=== PATIENT | male | born 1960 | race Caucasian/White ===

== ENCOUNTER → 2020-05-08 | Outpatient (CLI) | payer OTHER ==
[~2020-05-08] MED LIST: REGADENOSON 0.4 MG/5 ML PF SYG IVP ONE; REGADENOSON 0.4 MG/5 ML PF SYG IVP SCH
== END | disposition home or self-care (01) ==
LOC: SHCH 08:12
PROVIDERS: ATTEND Internal Medicine Cardiovascular Disease
DX: R93.1 Abnormal findings on diagnostic imaging of heart and coronary circulation (principal); R07.9 Chest pain, unspecified; R06.00 Dyspnea, unspecified
CPT/HCPCS: 78452; 93017; 96374; A9500 ×2; J2785

== ENCOUNTER → 2020-05-15 | Outpatient (CLI) | payer OTHER | END | disposition home or self-care (01) | LOC: RAH 07:51 | PROVIDERS: ATTEND Physical Medicine & Rehabilitation | DX: M47.812 Spondylosis without myelopathy or radiculopathy, cervical region (principal); M51.26 Other intervertebral disc displacement, lumbar region; M48.061 Spinal stenosis, lumbar region without neurogenic claudication | CPT/HCPCS: 72141; 72148 ==

== ENCOUNTER → 2021-10-13 | Outpatient (CLI) | payer OTHER | END | disposition home or self-care (01) | LOC: RAH 11:47 | PROVIDERS: ATTEND Physician Assistant | DX: M16.11 Unilateral primary osteoarthritis, right hip (principal); I70.8 Atherosclerosis of other arteries | CPT/HCPCS: 73502 ==

== ENCOUNTER 2021-12-02 07:58 | Day surgery (SDC) | payer OTHER ==
[2021-11-30 13:30] LABS: BASOPHILS % (AUTO) 0.6 % (0.0-5.0); EOSINOPHILS % (AUTO) 2.8 % (0.0-8.0); HEMATOCRIT 45.8 % (42-54); MEAN CORPUSCULAR HEMOGLOBIN 30.4 pg (27.0-33.0); MEAN CORPUSCULAR HGB CONC 32.1 g/dL (32.0-36.0); MEAN CORPUSCULAR VOLUME 94.8 fL (79-99); NEUTROPHILS % (AUTO) 72.2 % (40.0-77.0); PLATELET COUNT (AUTO) 221 K/uL (130-400); RED BLOOD CELL COUNT(AUTO) 4.83 MIL/uL (4.50-6.20); RED CELL DISTRIBUTION WIDTH 13.7 % (11.0-15.5)
[2021-11-30 13:41] LABS: INR 0.96 (0.85-1.15); PROTHROMBIN TIME 10.5 SEC (9.6-11.6)
[2021-11-30 13:42] LABS: PARTIAL THROMBOPLASTIN TIME 27.8 SEC (26.3-35.5)
[2021-11-30 13:57] LABS: APPEARANCE,URINE Clear (CLEAR); BILIRUBIN,URINE Negative (NEGATIVE); COLOR,URINE Yellow (YELLOW); GLUCOSE, URINE (UA) Negative (NEGATIVE); KETONES,URINE Negative (NEGATIVE); LEUKOCYTE ESTERASE ,URINE Small (NEGATIVE); NITRATE,URINE Positive (NEGATIVE); OCCULT BLOOD,URINE Trace (NEGATIVE); PROTEIN,URINE Negative (NEGATIVE)
[2021-11-30 14:04] LABS: B-TYPE NATRIURETIC PEPTIDE 59 pg/mL (0-100)
[2021-11-30 14:05] LABS: CREATININE 1.2 mg/dL (0.5-1.5)
[2021-11-30 14:08] LABS: BACTERIA,URINE Many /HPF (None Seen); RBC,URINE 0-1 /HPF (0-1); SQUAMOUS EPITHELIAL CELL,UR Rare /HPF (0-2)
[2021-12-01 13:57] VITALS: BP 158/72
[2021-12-02] VITALS (9 sets, daily range): BP systolic 108–152; BP diastolic 56–78
[~2021-12-02] VITALS: Ht 177.8 cm; Wt 106.6 kg
[~2021-12-02 07:58] MED LIST changes: +0.9% NACL 500ML IV.SOLN 500 ML IV SCH; +0.9%NACL 1000ML 1,000 ML IV ONE; +ALLO100T PO; +AMLO-257 PO; +ASCO500C6 PO; +ATOR40TA69 PO; +CHOL-9 PO; +CILO50TA PO; +CLOP75TA32 PO; +DULO30CA52 PO; +LABE100T5 PO; +OLME40TA18 PO; -REGADENOSON 0.4 MG/5 ML PF SYG IVP ONE; -REGADENOSON 0.4 MG/5 ML PF SYG IVP SCH; +VITAMIN B12 PO; +ZINC50TA64 PO
[2021-12-02] MEDS ORDERED: CEFTRIAXONE 1G VIAL IVP SCH (10:30)
[2021-12-02] MEDS ORDERED: HEPARIN 10,000 UNIT/10ML (1,000 UNIT/ML) VIAL ONE (11:35)
[2021-12-02] MEDS ORDERED: NITROGLYCERIN 50MG VIAL ONE (11:35)
[2021-12-02] MEDS ORDERED: LIDOCAINE HCL 1% 10 ML VIAL ONE ×2 (11:35→11:59)
[2021-12-02] MEDS ORDERED: BIVALIRUDIN 250 MG/VIAL IV ONE (11:35)
[2021-12-02] MEDS ORDERED: IOHEXOL-350 75 ML VIAL IV ONE (11:36)
[2021-12-02] MEDS ORDERED: FENTANYL CITRATE PF 50 MCG/1 ML 2ML VIAL ONE ×2 (11:36→12:06)
[2021-12-02] MEDS ORDERED: MIDAZOLAM HCL 1 MG/ML 2ML VIAL ONE (11:36)
[2021-12-02] MEDS ORDERED: IOHEXOL-350 50ML VIAL IV ONE (11:59)
[2021-12-02] MEDS ORDERED: LABETALOL 20MG VIAL IV ONE (12:35)
[2021-12-02] MEDS ORDERED: 0.9%NACL 1000ML 1,000 ML IV SCH (13:30)
[2021-12-02] MEDS ORDERED: PHARMACY COMMUNICATION MISC PRN (13:30)
[2021-12-02] MEDS ORDERED: FENTANYL CITRATE PF 50 MCG/1 ML 2ML VIAL IVP SCH (14:00)
== END 2021-12-02 17:45 | disposition home or self-care (01) ==
LOC: DAH 07:58
PROVIDERS: ATTEND Internal Medicine Cardiovascular Disease
DX: I25.10 Atherosclerotic heart disease of native coronary artery without angina pectoris (principal); I25.82 Chronic total occlusion of coronary artery; I25.5 Ischemic cardiomyopathy; I35.8 Other nonrheumatic aortic valve disorders; I70.0 Atherosclerosis of aorta; I12.9 Hypertensive chronic kidney disease with stage 1 through stage 4 chronic kidney disease, or unspecified chronic kidney disease; N18.30 Chronic kidney disease, stage 3 unspecified; E78.2 Mixed hyperlipidemia; I73.9 Peripheral vascular disease, unspecified; Z87.891 Personal history of nicotine dependence; Z79.82 Long term (current) use of aspirin; Z79.899 Other long term (current) drug therapy; Z79.01 Long term (current) use of anticoagulants
CPT/HCPCS: 36415; 71045; 75710; 80048; 81001; 83880; 85025; 85610; 85730; 87077; 87088; 87186; 93005; 93458; C1760; C1769; C1893; C1894 ×2; C8924; J0696; J1644; J2250; J3010 ×2; J3490 ×3; J7030; Q9967; 75625; 99156; 99157; J0583

== ENCOUNTER 2022-06-13 05:39 | Observation (INO) | payer OTHER ==
[2022-06-07 10:30] LABS: BASOPHILS % (AUTO) 0.5 % (0.0-5.0); EOSINOPHILS % (AUTO) 4.7 % (0.0-8.0); HEMATOCRIT 45.7 % (42-54); LYMPHOCYTES % (AUTO) 14.8 % (21.0-51.0); MEAN CORPUSCULAR HGB CONC 30.4 g/dL (32.0-36.0); MEAN CORPUSCULAR VOLUME 88.7 fL (79-99); MONOCYTES % (AUTO) 10.4 % (3.0-13.0); NEUTROPHILS % (AUTO) 69.3 % (40.0-77.0); PLATELET COUNT (AUTO) 219 K/uL (130-400); RED BLOOD CELL COUNT(AUTO) 5.15 MIL/uL (4.50-6.20); RED CELL DISTRIBUTION WIDTH 16.3 % (11.0-15.5); WHITE BLOOD COUNT (AUTO) 9.1 K/uL (4.8-10.8)
[2022-06-07 10:36] LABS: ALBUMIN 3.5 g/dL (3.5-5.0); CREATININE 1.2 mg/dL (0.5-1.5); CRP QUANTITATIVE 2.8 mg/L (0.00-9.0); POTASSIUM 4.5 mmol/L (3.5-5.1)
[2022-06-07 10:39] LABS: INR 0.95 (0.85-1.15); PROTHROMBIN TIME 10.4 SEC (9.6-11.6)
[2022-06-07 10:40] LABS: PARTIAL THROMBOPLASTIN TIME 29.6 SEC (26.3-35.5)
[2022-06-07 10:49] LABS: APPEARANCE,URINE CLOUDY (CLEAR); BILIRUBIN,URINE NEGATIVE (NEGATIVE); COLOR,URINE LIGHT-YELLOW (YELLOW); GLUCOSE, URINE (UA) NEGATIVE (NEGATIVE); KETONES,URINE NEGATIVE (NEGATIVE); LEUKOCYTE ESTERASE ,URINE 500 Leu/uL (NEGATIVE); NITRATE,URINE 2+ (NEGATIVE); OCCULT BLOOD,URINE SMALL (NEGATIVE); PH,URINE 5.5 (5.0-8.0); PROTEIN,URINE 10 mg/dL (NEGATIVE); UROBILINOGEN,URINE 0.2 mg/dL (0.2-1.0)
[2022-06-07 10:58] LABS: BACTERIA,URINE FEW /HPF (None Seen); MUCUS,URINE RARE LPF (None Seen); SQUAMOUS EPITHELIAL CELL,UR RARE /HPF (0-2); WBC,URINE TNTC /HPF (0-1)
[2022-06-07 15:09] VITALS: BP 194/80
[2022-06-13] VITALS (25 sets, daily range): BP systolic 128–193; BP diastolic 69–95
[~2022-06-13] VITALS: Ht 177.8 cm; Wt 105.4 kg
[~2022-06-13 05:39] MED LIST changes: -0.9% NACL 500ML IV.SOLN 500 ML IV SCH; -0.9%NACL 1000ML 1,000 ML IV ONE; +AEC81 PO; -AMLO-257 PO; -CHOL-9 PO; -CILO50TA PO; -CLOP75TA32 PO; -LABE100T5 PO; +LABE200T7 PO; +METO25 PO; +ROPIVACAINE 0.5% 5MG/ML 30ML IJ ONE; +TAMS-1 PO; +TRANEXAMIC ACID 1000MG/10ML ONE
[2022-06-13] MEDS: CEFAZOLIN SODIUM 1 GM VIAL IVPB SCH ×2 (06:00→07:12)
[2022-06-13] MEDS ORDERED: LACTATED RINGERS 1000ML 1,000 ML IV ONE (06:22)
[2022-06-13] MEDS ORDERED: PROPOFOL 10 MG/ML 20ML VIAL IV ONE (07:06)
[2022-06-13] MEDS ORDERED: ROCURONIUM 10MG/1ML SYR 10 MG/ML ML ONE ×2 (07:06→07:46)
[2022-06-13] MEDS ORDERED: MIDAZOLAM HCL 1 MG/ML 2ML VIAL ONE (07:06)
[2022-06-13] MEDS ORDERED: FENTANYL CITRATE PF 50 MCG/1 ML 5ML AMP IV ONE (07:07)
[2022-06-13] MEDS ORDERED: EPHEDRINE SULFATE 50 MG/ML AMPULE ONE (08:11)
[2022-06-13] MEDS ORDERED: SUGAMMADEX SODIUM 200 MG/2 ML VIAL IV ONE (09:16)
[2022-06-13] MEDS ORDERED: ONDANSETRON 4MG INJ ONE (09:23)
[2022-06-13] MEDS ORDERED: TRAMADOL HCL 50 MG TABLET PO PRN (10:00)
[2022-06-13] MEDS ORDERED: ONDANSETRON 4MG INJ IVP PRN (10:00)
[2022-06-13] MEDS ORDERED: DiphenhydrAMINE HCL 50 MG/ML VIAL IVP PRN (10:00)
[2022-06-13] MEDS ORDERED: HYDROCODONE/ACETAMINOPHEN 5/325 MG TAB PO PRN (10:00)
[2022-06-13] MEDS ORDERED: CYCLOBENZAPRINE HCL 10 MG TABLET PO PRN (10:00)
[2022-06-13] MEDS ORDERED: POTASSIUM CHLORIDE 20MEQ/100ML 100 ML IV PRN (10:00)
[2022-06-13] MEDS ORDERED: LIDOCAINE HCL-MPF 1% 2ML VIAL IV PRN (10:00)
[2022-06-13] MEDS ORDERED: POTASSIUM CHLORIDE 10% ELIXIR 20 MEQ/15 ML UDCUP PO PRN (10:00)
[2022-06-13] MEDS ORDERED: KCL 20 MEQ ERTAB PO PRN (10:00)
[2022-06-13] MEDS ORDERED: FERROUS FUMARATE 324 MG TABLET PO PRN (10:00)
[2022-06-13] MEDS: KETOROLAC 15MG/ML VIAL (15MG/ML) IV SCH ×2 (10:00→17:55)
[2022-06-13] MEDS ORDERED: IPRATROPIUM/ALBUTEROL SULFATE 3 ML SOLUTION IH ONE (10:11)
[2022-06-13] MEDS ORDERED: MEPERIDINE-PF 25 MG/ML SYG ONE (10:20)
[2022-06-13] MEDS: IPRATROPIUM/ALBUTEROL SULFATE 3 ML SOLUTION IH SCH ×3 (14:22→22:54)
[2022-06-13] MEDS: CEFAZOLIN SODIUM 2 GM VIAL IVP SCH ×2 (15:45→23:39)
[2022-06-13] MEDS: GABAPENTIN 100 MG CAPSULE PO SCH ×2 (15:45→21:09)
[2022-06-13] MEDS: 0.9%NACL 1000ML 1,000 ML IV SCH ×2 (15:45→21:12)
[2022-06-13] MEDS: DOCUSATE SODIUM 100 MG CAP PO SCH (21:11)
[2022-06-14] VITALS: BP 167/91
[2022-06-14] MEDS: IPRATROPIUM/ALBUTEROL SULFATE 3 ML SOLUTION IH SCH ×6 (02:01→23:17)
[2022-06-14] MEDS: KETOROLAC 15MG/ML VIAL (15MG/ML) IV SCH (02:11)
[2022-06-14 03:43] VITALS: BP 139/78
[2022-06-14 04:34] LABS: MEAN CORPUSCULAR HEMOGLOBIN 27.4 pg (27.0-33.0); MEAN CORPUSCULAR HGB CONC 31.1 g/dL (32.0-36.0); MEAN CORPUSCULAR VOLUME 88.4 fL (79-99); RED BLOOD CELL COUNT(AUTO) 4.3 MIL/uL (4.50-6.20); RED CELL DISTRIBUTION WIDTH 16.5 % (11.0-15.5); WHITE BLOOD COUNT (AUTO) 15.3 K/uL (4.8-10.8)
[2022-06-14 04:51] LABS: CREATININE 1.4 mg/dL (0.5-1.5); POTASSIUM 4.9 mmol/L (3.5-5.1)
[2022-06-14] MEDS: 0.9%NACL 1000ML 1,000 ML IV SCH (06:00)
[2022-06-14] MEDS: HYDROCODONE/ACETAMINOPHEN 5/325 MG TAB PO PRN ×2 (06:22→17:31)
[2022-06-14 08:00] VITALS: BP 131/70
[2022-06-14] MEDS ORDERED: CEFTRIAXONE 1G VIAL IVP ONE (09:00)
[2022-06-14] MEDS: POLYETHYLENE GLYCOL 3350 17 GM POWD.PACK PO SCH (10:03)
[2022-06-14] MEDS: GABAPENTIN 100 MG CAPSULE PO SCH ×3 (10:03→21:56)
[2022-06-14] MEDS: ASPIRIN 325MG TAB PO SCH (10:03)
[2022-06-14] MEDS: DOCUSATE SODIUM 100 MG CAP PO SCH ×2 (10:03→21:56)
[2022-06-14 12:00] VITALS: BP 127/47
[2022-06-14 16:00] VITALS: BP 159/58
[2022-06-14 19:00] VITALS: BP 123/58
[2022-06-15] VITALS: BP 158/85
[2022-06-15] MEDS: IPRATROPIUM/ALBUTEROL SULFATE 3 ML SOLUTION IH SCH ×5 (02:54→22:59)
[2022-06-15 04:00] VITALS: BP 175/79
[2022-06-15 07:20] VITALS: BP 158/88
[2022-06-15] MEDS ORDERED: TAMSULOSIN HCL 0.4 MG CAP.ER.24H ONE (08:56)
[2022-06-15] MEDS: ZINC SULFATE 220 CAPSULE PO SCH (08:58)
[2022-06-15] MEDS: DULOXETINE HCL 30 MG CAP PO SCH (08:58)
[2022-06-15] MEDS: METOPROLOL TARTRATE 25 MG TAB PO SCH ×2 (08:58→21:00)
[2022-06-15] MEDS: POLYETHYLENE GLYCOL 3350 17 GM POWD.PACK PO SCH (08:58)
[2022-06-15] MEDS: CYANOCOBALAMIN (VITAMIN B-12) 1,000 MCG TABLET PO SCH (08:58)
[2022-06-15] MEDS: LABETALOL HCL 200 MG TABLET PO SCH ×2 (09:00→21:00)
[2022-06-15] MEDS: ATORVASTATIN 40 MG TABLET PO SCH (09:01)
[2022-06-15] MEDS: ALLOPURINOL 100 MG TABLET PO SCH (09:01)
[2022-06-15] MEDS: GABAPENTIN 100 MG CAPSULE PO SCH ×3 (09:01→21:22)
[2022-06-15] MEDS: ASPIRIN 325MG TAB PO SCH (09:01)
[2022-06-15] MEDS: HYDROCODONE/ACETAMINOPHEN 5/325 MG TAB PO PRN ×3 (09:02→21:29)
[2022-06-15] MEDS: LOSARTAN 100 MG TABLET PO SCH (09:02)
[2022-06-15] MEDS: DOCUSATE SODIUM 100 MG CAP PO SCH ×2 (09:02→21:23)
[2022-06-15 11:20] VITALS: BP 100/60
[2022-06-15] MEDS: KETOROLAC 15MG/ML VIAL (15MG/ML) IV PRN (12:30)
[2022-06-15] MEDS: CALCIUM CARB 500MG PO PRN (12:54)
[2022-06-15] MEDS ORDERED: IPRATROPIUM/ALBUTEROL SULFATE 3 ML SOLUTION IH ONE (14:26)
[2022-06-15 15:20] VITALS: BP 109/58
[2022-06-15 19:00] VITALS: BP 96/52
[2022-06-15] MEDS: TIZANIDINE HCL 2 MG TABLET PO SCH (21:24)
[2022-06-16] VITALS: BP 99/58
[2022-06-16] MEDS: IPRATROPIUM/ALBUTEROL SULFATE 3 ML SOLUTION IH SCH ×6 (02:39→23:18)
[2022-06-16 04:00] VITALS: BP 110/60
[2022-06-16 07:25] VITALS: BP 118/64
[2022-06-16] MEDS: ASPIRIN 325MG TAB PO SCH (08:14)
[2022-06-16] MEDS: ATORVASTATIN 40 MG TABLET PO SCH (08:15)
[2022-06-16] MEDS: TIZANIDINE HCL 2 MG TABLET PO SCH ×3 (08:16→20:26)
[2022-06-16] MEDS: CYANOCOBALAMIN (VITAMIN B-12) 1,000 MCG TABLET PO SCH (08:16)
[2022-06-16] MEDS: HYDROCODONE/ACETAMINOPHEN 5/325 MG TAB PO PRN (08:16)
[2022-06-16] MEDS: DOCUSATE SODIUM 100 MG CAP PO SCH ×2 (08:16→20:28)
[2022-06-16] MEDS: LOSARTAN 100 MG TABLET PO SCH (08:16)
[2022-06-16] MEDS: DULOXETINE HCL 30 MG CAP PO SCH (08:17)
[2022-06-16] MEDS: GABAPENTIN 100 MG CAPSULE PO SCH ×3 (08:17→20:28)
[2022-06-16] MEDS: ALLOPURINOL 100 MG TABLET PO SCH (08:17)
[2022-06-16] MEDS: CALCIUM CARB 500MG PO PRN (08:17)
[2022-06-16] MEDS: POLYETHYLENE GLYCOL 3350 17 GM POWD.PACK PO SCH (08:18)
[2022-06-16] MEDS: METOPROLOL TARTRATE 25 MG TAB PO SCH ×2 (08:18→20:26)
[2022-06-16] MEDS: ZINC SULFATE 220 CAPSULE PO SCH (09:00)
[2022-06-16] MEDS: LABETALOL HCL 200 MG TABLET PO SCH ×2 (09:00→20:28)
[2022-06-16] MEDS ORDERED: BISACODYL 10 MG SUPP.RECT RC PRN (10:00)
[2022-06-16 11:20] VITALS: BP 86/49
[2022-06-16 15:20] VITALS: BP 102/52
[2022-06-16] MEDS ORDERED: LACTULOSE 20 GM/30 ML UDCUP PO PRN (18:00)
[2022-06-16] MEDS ORDERED: LACTULOSE 20 GM/30 ML UDCUP ONE (18:17)
[2022-06-16 20:00] VITALS: BP 128/61
[2022-06-16] MEDS ORDERED: TAMSULOSIN HCL 0.4 MG CAP.ER.24H PO SCH (21:00)
[2022-06-17] VITALS: BP 125/55
[2022-06-17] MEDS: IPRATROPIUM/ALBUTEROL SULFATE 3 ML SOLUTION IH SCH ×3 (02:31→10:23)
[2022-06-17 04:00] VITALS: BP 130/58
[2022-06-17] MEDS: HYDROCODONE/ACETAMINOPHEN 5/325 MG TAB PO PRN (07:25)
[2022-06-17 08:00] VITALS: BP 136/65
[2022-06-17] MEDS: KETOROLAC 15MG/ML VIAL (15MG/ML) IV PRN (09:17)
[2022-06-17] MEDS: LOSARTAN 100 MG TABLET PO SCH (09:18)
[2022-06-17] MEDS: ALLOPURINOL 100 MG TABLET PO SCH (09:18)
[2022-06-17] MEDS: ZINC SULFATE 220 CAPSULE PO SCH (09:18)
[2022-06-17] MEDS: POLYETHYLENE GLYCOL 3350 17 GM POWD.PACK PO SCH (09:18)
[2022-06-17] MEDS: DOCUSATE SODIUM 100 MG CAP PO SCH (09:18)
[2022-06-17] MEDS: CYANOCOBALAMIN (VITAMIN B-12) 1,000 MCG TABLET PO SCH (09:18)
[2022-06-17] MEDS: TIZANIDINE HCL 2 MG TABLET PO SCH (09:19)
[2022-06-17] MEDS: ASPIRIN 325MG TAB PO SCH (09:19)
[2022-06-17] MEDS: METOPROLOL TARTRATE 25 MG TAB PO SCH (09:19)
[2022-06-17] MEDS: LABETALOL HCL 200 MG TABLET PO SCH (09:19)
[2022-06-17] MEDS: DULOXETINE HCL 30 MG CAP PO SCH (09:19)
[2022-06-17] MEDS: GABAPENTIN 100 MG CAPSULE PO SCH ×2 (09:29→13:57)
[2022-06-17] MEDS ORDERED: ATORVASTATIN 40 MG TABLET PO SCH (09:30)
[2022-06-17 11:59] VITALS: BP 115/75
[2022-06-17] MEDS ORDERED: IPRATROPIUM/ALBUTEROL SULFATE 3 ML SOLUTION IH SCH (12:30)
[2022-06-17] MEDS ORDERED: TIZANIDINE HCL 2 MG TABLET PO SCH (14:00)
[2022-06-17] MEDS ORDERED: HYDR-4060 PO ×2 (14:11)
[2022-06-17] MEDS ORDERED: TIZA-194 PO ×2 (14:11)
[2022-06-17] MEDS ORDERED: DOCU-116 PO ×2 (14:11)
[2022-06-17] MEDS ORDERED: ASPI-1026 PO ×2 (14:11)
[2022-06-17] MEDS ORDERED: GABA100C PO ×2 (14:11)
[2022-06-17 16:00] VITALS: BP 103/42
== END 2022-06-17 18:40 ==
LOC: DAH 05:39 → DAHIP 05:40 → DAH 05:40 → 4CH 11:23
PROVIDERS: ADMIT Student in an Organized Health Care Education/Training Program; ATTEND Student in an Organized Health Care Education/Training Program
DX: M16.11 Unilateral primary osteoarthritis, right hip (principal); Z20.822 Contact with and (suspected) exposure to COVID-19; M21.70 Unequal limb length (acquired), unspecified site; D50.0 Iron deficiency anemia secondary to blood loss (chronic); N39.0 Urinary tract infection, site not specified; I10 Essential (primary) hypertension; I25.10 Atherosclerotic heart disease of native coronary artery without angina pectoris; E78.2 Mixed hyperlipidemia; N40.0 Benign prostatic hyperplasia without lower urinary tract symptoms; Z87.891 Personal history of nicotine dependence; Z79.899 Other long term (current) drug therapy
CPT/HCPCS: 82040; 80048 ×2; 85025; 85610; 85730; 87077; 87088; 87186; 84134; 86140; 87426; 81001; 36415 ×2; 87641; 94640 ×25; 27130; 96374; 96376 ×4; 96375 ×2; 73502; 73503; 97161; 97039 ×12; 97530 ×6; 94664; 85027; 97116 ×4; G0378 ×98; A4663; C1776; J7120; J3010; J0690 ×3; J3490 ×3; J2250; J2704; J2405 ×2; J2175; J2795; J1885 ×4; A4649 ×3; G0168; A6255; A5120; A4215; A4223; A4222; A4221; J0696

== ENCOUNTER 2022-06-22 11:30 | Emergency (ER) | payer OTHER ==
[~2022-06-22] VITALS: Ht 177.8 cm; Wt 99.8 kg
[~2022-06-22 11:30] MED LIST changes: -AEC81 PO; +ASPI-1026 PO; +DOCU-116 PO; +GABA100C PO; +HYDR-4060 PO; -ROPIVACAINE 0.5% 5MG/ML 30ML IJ ONE; +TIZA-194 PO; -TRANEXAMIC ACID 1000MG/10ML ONE
[2022-06-22 13:10] LABS: BASOPHILS % (AUTO) 0.3 % (0.0-5.0); EOSINOPHILS % (AUTO) 3.3 % (0.0-8.0); HEMATOCRIT 30.6 % (42-54); LYMPHOCYTES % (AUTO) 9.2 % (21.0-51.0); MEAN CORPUSCULAR HEMOGLOBIN 27.3 pg (27.0-33.0); MEAN CORPUSCULAR VOLUME 87.9 fL (79-99); MONOCYTES % (AUTO) 9.9 % (3.0-13.0); NEUTROPHILS % (AUTO) 76.3 % (40.0-77.0); PLATELET COUNT (AUTO) 358 K/uL (130-400); RED BLOOD CELL COUNT(AUTO) 3.48 MIL/uL (4.50-6.20); RED CELL DISTRIBUTION WIDTH 17.2 % (11.0-15.5); WHITE BLOOD COUNT (AUTO) 10.1 K/uL (4.8-10.8)
[2022-06-22 13:23] LABS: CREATININE 1.2 mg/dL (0.5-1.5); POTASSIUM 4.6 mmol/L (3.5-5.1)
[2022-06-22 13:31] LABS: ALBUMIN 2.8 g/dL (3.5-5.0); TOTAL PROTEIN, SERUM 7.2 g/dL (6.0-8.3)
[2022-06-22] MEDS ORDERED: CEPH500B PO (16:14)
[2022-06-22 16:26] VITALS: BP 143/63
== END 2022-06-22 16:44 ==
LOC: EDH 11:30
DX: M96.89 Other intraoperative and postprocedural complications and disorders of the musculoskeletal system (principal); R22.41 Localized swelling, mass and lump, right lower limb; E78.00 Pure hypercholesterolemia, unspecified; I10 Essential (primary) hypertension; Z79.82 Long term (current) use of aspirin; Z79.899 Other long term (current) drug therapy; Z48.01 Encounter for change or removal of surgical wound dressing; Z96.641 Presence of right artificial hip joint; Z86.718 Personal history of other venous thrombosis and embolism
CPT/HCPCS: 36415; 80053; 85025; 87040; 93971

== ENCOUNTER → 2022-06-24 | Outpatient (CLI) | payer OTHER ==
[~2022-06-24] MED LIST changes: +AEC81 PO; +CEPH500B PO
== END | disposition home or self-care (01) ==
LOC: LAB 14:17
PROVIDERS: ATTEND Student in an Organized Health Care Education/Training Program
DX: T81.49XA Infection following a procedure, other surgical site, initial encounter (principal); X58.XXXA Exposure to other specified factors, initial encounter; Y93.89 Activity, other specified; Y92.89 Other specified places as the place of occurrence of the external cause; Y99.8 Other external cause status
CPT/HCPCS: 87070; 87076

== ENCOUNTER → 2023-10-04 | Outpatient (CLI) | payer OTHER ==
[~2023-10-04] MED LIST changes: -AEC81 PO
== END | disposition home or self-care (01) ==
LOC: RAH 13:05
PROVIDERS: ATTEND Nurse Practitioner Family
DX: R94.4 Abnormal results of kidney function studies (principal)
CPT/HCPCS: 76770

== ENCOUNTER → 2024-01-02 | Outpatient (CLI) | payer OTHER ==
[~2024-01-02] MED LIST changes: +ASCO500C19 PO; -ASCO500C6 PO
== END | disposition home or self-care (01) ==
LOC: RAH 13:43
PROVIDERS: ATTEND Physician Assistant
DX: M16.11 Unilateral primary osteoarthritis, right hip (principal); M17.0 Bilateral primary osteoarthritis of knee; M41.35 Thoracogenic scoliosis, thoracolumbar region; M48.061 Spinal stenosis, lumbar region without neurogenic claudication; M25.561 Pain in right knee; M25.562 Pain in left knee; M25.551 Pain in right hip; Z96.641 Presence of right artificial hip joint
CPT/HCPCS: 72081; 72114; 73502; 73565; 73560

== ENCOUNTER → 2024-02-12 | Outpatient (CLI) | payer OTHER | END | disposition home or self-care (01) | LOC: RAH 14:09 | PROVIDERS: ATTEND Physical Medicine & Rehabilitation | DX: M47.817 Spondylosis without myelopathy or radiculopathy, lumbosacral region (principal); M51.37 Other intervertebral disc degeneration, lumbosacral region; M48.07 Spinal stenosis, lumbosacral region; N28.1 Cyst of kidney, acquired | CPT/HCPCS: 72148 ==